=== PATIENT | female | born 1965 | race Caucasian/White ===

== ENCOUNTER → 2024-06-21 08:59 | Outpatient (REF) | payer BC, SELFPAY | LOC: WDC 08:59 | PROVIDERS: ATTENDING PHYSICIAN Obstetrics & Gynecology; FAMILY PHYSICIAN Emergency Medicine | DX: Z12.31 Encounter for screening mammogram for malignant neoplasm of breast (principal) | CPT/HCPCS: 77063; 77067 ==

== ENCOUNTER → 2024-08-12 16:37 | Outpatient (REF) | payer BC, SELFPAY | LOC: RAD 16:37 | PROVIDERS: ATTENDING PHYSICIAN Internal Medicine Endocrinology, Diabetes & Metabolism; FAMILY PHYSICIAN Family Medicine | DX: E04.2 Nontoxic multinodular goiter (principal) | CPT/HCPCS: 76536 ==

== ENCOUNTER 2024-12-27 10:39 | Emergency (ER) | payer BC, SELFPAY ==
[2024-12-27 11:01] VITALS: BP 134/81
[2024-12-27 11:11] VITALS: BP 134/81
--- NOTE | 2024-12-27 11:34 | ED TECH ---
could not draw labs in triage. urine sample sent.
[2024-12-27 11:43] LABS: Urine Character Cloudy (Clear)
[2024-12-27 12:03] LABS: Urine Red Blood Cell >100 /HPF (0-2)
[2024-12-27 12:11] VITALS: BP 131/80
[2024-12-27 12:22] VITALS: BMI 30.6
[2024-12-27] MEDS: NSS 1000 IV (12:41)
[2024-12-27 12:49] LABS: Hematocrit 40.1 % (37.0-47.0); Hemoglobin 13.6 g/dL (12.0-16.0); Mean Corp Hgb Conc. 33.9 g/dL (33.0-37.0); Mean Corpuscular Volume 88.7 fL (81.0-99.0); Nucleated Red Blood Cells % 0 %; Platelet Count 205 10^3/uL (130-400); Red Cell Dist. Width 13.1 % (11.5-14.5)
[2024-12-27] MEDS: TORADOL 30 MG IV (12:54)
[2024-12-27] MEDS: ZOFRAN 4 MG IV (12:54)
[2024-12-27] MEDS: DILAUDID 0.5 MG IV (13:08)
[2024-12-27 13:11] LABS: ALT (SGPT) 19 U/L (0-35); AST (SGOT) 26 U/L (14-36); Albumin 4.5 g/dl (3.5-5.0); Alkaline Phosphatase 88 U/L (38-126); Blood Urea Nitrogen 22 mg/dl (7-17); Calcium 9.5 mg/dl (8.4-10.2); Carbon Dioxide 24 mmol/L (22-30); Chloride 107 mmol/L (98-107); Estimated Creatinine Clearance 72 ml/min; Glucose 113 mg/dl (70-99); Potassium 4.4 mmol/L (3.5-5.1); Sodium 138 mmol/L (135-145); Total Protein 7.0 g/dl (6.3-8.2); eGFR > 60.00
[2024-12-27 13:23] VITALS: BP 116/69
--- NOTE | 2024-12-27 13:23 | ED.GENMED ---
History of Present Illness
General
Chief Complaint: Flank Pain
Source: patient
Time Seen by Provider: 12/27/24 12:06
History of Present Illness
History of Present Illness:
36-year-old female who presents to the emergency department for evaluation of right-sided flank pain that became acutely worse this morning described to be a constant dull ache with intermittent sharp bursts of pain accompanied with 1 episode of
vomiting, waxing and waning nausea and believes she may have had some slight hematuria earlier in the week. Patient notes a history of kidney stones and that the pain does feel somewhat similar. She also notes some urinary frequency but no
dysuria. Denies any known fevers but states maybe has had some chills which started earlier today. Denies any bowel changes and no reported rashes.
Past History
Past History
ED Past Medical History: Asthma, Hypercholesterolemia and Other (Renal calculi)
ED Past Surgical History: Gynecological (Partial hysterectomy)
Social History
Tobacco: Non-smoker
Alcohol: None
Drug: None
Personal:
Living: with family
Employment: Employed
Family History
Family History: Other (Noncontributory)
Review of Systems
Review of Systems
All Other Systems: ROS reviewed and negative except as documented in HPI and ROS
Phy Exam
Physical Exam
Physical Exam:
GENERAL: Alert , in no apparent distress but appears very uncomfortable
EYE: clear conjunctiva b/l
HEAD: NCAT
ENT: o/p clr, mmm.
CARDIAC: Regular rate and rhythm .
LUNGS: Clear breath sounds bilaterally, no acute respiratory distress, no wheezes/rales/rhonchi
ABDOMEN: Soft, without focal tenderness, no r/g, right CVA tenderness, negative Sanders sign, no tenderness at McBurney's point
NEUROLOGICAL: Alert and oriented
SKIN: Warm and dry, skin intact. No rashes
MUSCULOSKELETAL: No edema, well perfused.
PSYCH: Normal and appropriate interaction.
Scores
Heart Failure Risk
Heart Failure Risk Score: Not Applicable
Heart Score for Chest Pain Patients
STEMI patient?: Not applicable
Withdrawal Assessment of Alcohol
Withdrawal Assessment Completed?: Not applicable
Course
Orders/Labs/Results
Orders:
Orders
12/27/24 11:31
Urinalysis Reflex To Culture Urgent
Date Specimen was Collected: 12/27/24
Time Specimen was Collected: 11:16
Urine Microscopic Reflex Cult Urgent
Urine Culture Urgent
YENNY Source: U
Specimen Description:
Date Specimen was Collected: 12/27/24
Time Specimen was Collected: 11:16
12/27/24 12:06
CT Abd/pel Without Iv Or Oral Urgent
Comment:
Reason For Exam: right flank pain, hematuria
12/27/24 12:40
CBC/With Diff [Complete Blood Count/With Diff] Urgent
Comprehensive Metabolic Panel Urgent
12/27/24 12:41
0.9% Sodium Chloride 1000 ml [Nss] 1,000 ml IV BOLUS
12/27/24 12:52
Ketorolac [Toradol] 30 mg .ROUTE .STK-MED ONE
Ketorolac [Toradol] 30 mg IV NOW STA
Ondansetron Injectable [Zofran] 4 mg .ROUTE .STK-MED ONE
Ondansetron Injectable [Zofran] 4 mg IV NOW STA
12/27/24 13:07
HYDROmorphone [Dilaudid] 0.5 mg .ROUTE .STK-MED ONE
HYDROmorphone [Dilaudid] 0.5 mg IV NOW STA
Abnormal Lab Results
12/27/24 12/27/24
11:31 12:40
Absolute Neuts (auto) 8.0 H 10^3/uL
(1.4-6.5)
Neutrophils % 82.0 H %
(42.2-75.2)
Lymphocytes % 12.4 L %
(20.5-51.1)
BUN 22 H mg/dl
(7-17)
Glucose 113 H mg/dl
(70-99)
Urine Ketones 3+ A
(Negative)
Ur Occult Blood Reflex 4+ A
(Negative)
Leukocyte Esterase Rfl 2+ A
(Negative)
Urine RBC >100 A /HPF
(0-2)
Urine Albumin (Reflex) 3+ A
(Neg - Trace)
12/27/24 12:40
12/27/24 12:40
Vital Signs
Initial and Last Documented VS:
Initial Vital Signs
Temp Pulse Resp BP Pulse Ox
98.1 F 62 20 134/81 100
12/27/24 11:01 12/27/24 11:01 12/27/24 11:01 12/27/24 11:01 12/27/24 11:01
Last Documented Vital Signs
Temp Pulse Resp BP Pulse Ox
97.5 F 63 16 116/72 97
12/27/24 11:11 12/27/24 11:11 12/27/24 11:11 12/27/24 14:00 12/27/24 14:30
MDM/Problems Addressed
Differential Diagnosis Includes:
Renal/ureteral colic
Pyelonephritis
Cystitis
Musculoskeletal back pain
Shingles
Cholelithiasis/cholecystitis
Diverticulitis
MDM/Problems Addressed:
59-year-old female presenting to the ER for evaluation of hematuria, flank pain nausea and vomiting in the setting of known kidney stones in the past. Patient did take 1 tablet of 200 mg of Advil around 8 AM with no relief. She vomited here while
in the waiting room. Still appears very uncomfortable. Labs initiated in triage reassuring. Urine with microscopic hematuria and unable to assess white blood cell count. Will check CT of the abdomen and pelvis. Pain control with Toradol and
Zofran. Fluids ordered. Reassessment following
*Radiology
Radiology exam reviewed: radiology read reviewed
*Pulse Oximetry
SaO2: 97
Oxygen Mode of Delivery: Room air
Patient hypoxic: no
*Critical Care Note
Total Time (30-74mins, 75-104mins- exclusive of procedures): Not Applicable
Data Reviewed
Review of Other/Old Records Reveals: Records
Comment
Comment:
Minimal relief with Toradol so additional half milligram of Dilaudid IV ordered.
Patient Management
Escalation/DeEscalation of care consider admission/obs:
CT scan shows a 3-1/2 mm calculus at the distal right ureter with moderate obstructive uropathy. Following additional pain medication patient reports feeling significantly improved and ultimately would like to be discharged home. Prescriptions for
Percocet, Zofran and Flomax were sent to pharmacy. Can continue NSAIDs [id number]-[id number] for pain as well. Patient provided with a urine strainer. Information for urology provided. Aware of return precautions to the ER. Stable for discharge home.
ED Attending Note
-
Portions of this chart may have been created with voice recognition software.� Occasional wrong word or��sound alike� substitutions may have occurred due to the inherent limitations of voice recognition software.
Discharge Plan
Departure
Patient Disposition: Home (Routine Discharge)
Date of Disposition: 12/27/24
Time of Disposition: 13:57
Patient with high blood pressure during this ER visit?: No
Discharge Problem:
Ureterolithiasis, Kidney stone
Instructions: Kidney Stones (DC)
Prescriptions:
New
cephalexin 500 mg capsule
500 mg PO BID 7 Days Qty: 14 0RF
oxycodone-acetaminophen [Percocet] 5-325 mg tablet
1 tab PO Q6HPRN PRN (Reason: pain) Qty: 8 0RF
tamsulosin [Flomax] 0.4 mg capsule
0.4 mg PO DAILY Qty: 10 0RF
ondansetron 4 mg tablet,disintegrating
4 mg PO TIDPRN PRN (Reason: nausea/vomiting) Qty: 10 0RF
No Action
ketorolac 10 MG tablet
10 mg PO QID PRN (Reason: flank pain) Qty: 12 0RF
ondansetron 4 MG tablet,disintegrating
4 mg PO QIDPRN PRN (Reason: nausea/vomiting) Qty: 20 0RF
Referrals:
Hardeep oGoden MD [Active, Urology]
Caleb Don DO [Family Provider, Family Practice]
Interventions
Interventions:
*Risk Screen - Suicide Last Done: 12/27/24 11:11
*General Assessment Last Done: 12/27/24 12:23
*Neglect/Abuse Screening Last Done: 12/27/24 11:11
*ED- Fall Risk Assessment Last Done: 12/27/24 12:23
*ED COVID-19 Vaccine History Last Done: 12/27/24 12:23
*Nursing Disposition Last Done: 12/27/24 14:40
ZU-Geqmud-Wzyquonmqk Assessment Last Done: 12/27/24 12:23
ED-Female Genitourinary Assessment Last Done: 12/27/24 12:23
Discharge Date and Time
Discharge Date/Time: 12/27/24 14:48
Print Language: DANISH
[2024-12-27 14:00] VITALS: BP 116/72
== END 2024-12-27 14:48 | disposition home or self-care (01) ==
LOC: EMR 10:39
PROVIDERS: Emergency Medicine; EMERGENCY PHYSICIAN Student in an Organized Health Care Education/Training Program; FAMILY PHYSICIAN Family Medicine
DX: N20.2 Calculus of kidney with calculus of ureter (principal); J45.909 Unspecified asthma, uncomplicated; E78.00 Pure hypercholesterolemia, unspecified
CPT/HCPCS: 96374; 96375; 96361; 99284; 74176; 80053; 81003; 81015; 85025; 87086